=== PATIENT | male | born 1995 | race Asian ===

== ENCOUNTER 2018-04-03 23:02 | Emergency (ER) | payer SELFPAY ==
[2018-04-03 23:35] VITALS: BP 115/69
--- NOTE | 2018-04-03 23:43 | ED ---
Fermín Williamson Rebecca, scribed for Seamus Mena MD on 04/03/18 at 2327 . Substance Abuse/Use - HPI Summary HPI Summary: Pt is a 22 y/o M BIBA as a 2208 who presents to ED due to EtOH intoxication. Per triage note, [place] [employer] found the pt slumped on a bench. When trying to arouse him, he would not wake up. Police called EMS who initially could not arouse pt. Once awake, the pt reportedly became aggressive, prompting being brought to the ED. Pt confirms to EtOH use today and that he would be able to get a safe ride home. 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 - Allergies/Home Medications Allergies/Adverse Reactions: Allergies Allergy/AdvReac Type Severity Reaction Status Date / Time Penicillins Allergy Unknown Verified 04/03/18 23:16 Reaction Details PMH/Surg Hx/FS Hx/Imm Hx Endocrine/Hematology History: Denies: Hx Diabetes Cardiovascular History: Denies: Hx Coronary Artery Disease, Hx Hypertension - Immunization History Date of Tetanus Vaccine: unk Date of Influenza Vaccine: unk Infectious Disease History: No Infectious Disease History: Denies: Traveled Outside the [place] in Last 30 Days - Family History Known Family History: Negative: Diabetes - Social History Alcohol Use: Occasionally Substance Use Type: Reports: None Smoking Status (MU): Never Smoked Tobacco Review of Systems Negative: Fever Positive: Other - EtOH intoxication, 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 All Other Systems Reviewed And Are Negative: Yes Physical Exam - Summary Physical Exam Summary: General: wakes up and moves around Skin: warm, color reflects adequate perfusion, dry Head: normal Eyes: EOMI, ROVERTO ENT: normal Neck: supple, nontender Respiratory: CTA, breath sounds present Cardiovascular: RRR Musculoskeletal: normal, strength/ROM intact Neurological: normal, sensory/motor intact, A&O x3 Triage Information Reviewed: Yes Vital Signs On Initial Exam: Initial Vitals Temp Pulse Resp BP Pulse Ox 97.7 F 94 16 115/69 100 04/03/18 23:09 04/03/18 23:09 04/03/18 23:09 04/03/18 23:09 04/03/18 23:09 Vital Signs Reviewed: Yes Diagnostics - Vital Signs Vital Signs Temp Pulse Resp BP Pulse Ox 04/03/18 23:09 97.7 F 94 16 115/69 100 - Laboratory Lab Statement: Any lab studies that have been ordered have been reviewed, and results considered in the medical decision making process. Re-Evaluation - Re-Evaluation First Eval Re-Evaluation Time: 23:34 Comment: Pt is talking and walking. Course/Dx - Course Course Of Treatment: PATIENT WALKING IN ED. ABLE TO CARRY ON A CONVERSATION. REQUESTS TO GO HOME BY [facility] OR [facility]. AT THIS TIME, THE PATIENT IS SUFFICIENTLY COMPETENT TO GO HOME BY [facility] OR [facility]. Assessment/Plan: Medications reviewed. Allergies noted. - Diagnoses Provider Diagnoses: Acute alcohol intoxication Discharge - Sign-Out/Discharge Documenting (check all that apply): Discharge/Admit/Transfer - Discharge Plan Condition: Stable Disposition: HOME Patient Education Materials: Alcohol Intoxication (ED) Referrals: [facility] [Provider Group] Additional Instructions: FOLLOW UP WITH YOUR DOCTOR. RETURN TO THE EMERGENCY DEPARTMENT FOR ANY WORSENING OF YOUR CONDITION OR QUESTIONS OR CONCERNS. - Billing Disposition and Condition Condition: STABLE Disposition: HOME The documentation as recorded by the Fermín daniels Rebecca accurately reflects the service I personally performed and the decisions made by me, Seamus Mena MD.
== END 2018-04-03 23:43 | disposition home or self-care (01) ==
LOC: ED 23:02
DX: F10.129 Alcohol abuse with intoxication, unspecified (principal); Z88.0 Allergy status to penicillin
CPT/HCPCS: 99282